=== PATIENT | male | born 1980 | race American Indian/Alaskan Native ===

== ENCOUNTER 2021-11-18 14:43 | Emergency (ER) | payer MEDICARE, MEDICAID ==
[2021-11-18 15:14] VITALS: BP 109/80
[2021-11-18] MEDS ORDERED: KETOROLAC 10 MG TAB PO ONE (17:59)
[2021-11-18] MEDS ORDERED: dexAMETHasone 4 MG/ML VIAL IM ONE (17:59)
[2021-11-18] MEDS ORDERED: METOCLOPRAMIDE 10 MG TAB PO ONE (17:59)
[2021-11-18] MEDS ORDERED: diphenhydrAMINE 25 MG CAP PO ONE (18:00)
--- NOTE | 2021-11-18 19:58 | Emergency Department Report ---
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 He denies n/v, dizziness, vision changes, and photophobia. He states that GONSALVES is mostly frontal and 9/10. Timing/Duration: 24 hours Quality: severe, achy Head Injury Location: frontal Recent Head Trauma: frequent headaches Associated Symptoms: denies: confusion, fatigue, facial pain, fever/chills, flushing, loss of consciousness, nausea/vomiting, nasal congestion, nasal drainage, numbness in legs/feet, rash, seizures, sinus infection, stiff neck, vi ashley changes, weakness Allergies/Adverse Reactions: Allergies No Known Allergies Allergy (Verified 11/18/21 15:11) Home Medications: Ambulatory Orders Butalb/Acetaminophen/Caffeine [Fioricet 50-300-40 mg CAP] 1 cap PO Q8HR PRN #12 cap 11/18/21 ED Review of Systems Comment: All other systems reviewed and negative Constitutional: denies: chills, diaphoresis, fever, malaise, weakness ENT: denies: ear pain, congestion Respiratory: denies: cough, orthopnea, shortness of breath, SOB with exertion, SOB at rest, stridor, wheezing Cardiovascular: denies: chest pain, palpitations, dyspnea on exertion, orthopnea, edema, syncope, paroxysmal nocturnal dyspnea Gastrointestinal: denies: abdominal pain, nausea, vomiting, diarrhea, hematemesis, melena, hematochezia Genitourinary: denies: urgency, dysuria, frequency, hematuria, discharge Musculoskeletal: denies: back pain Skin: denies: rash, lesions Neurological: headache. denies: weakness, numbness, paresthesias, confusion, abnormal gait, vertigo Psychiatric: denies: anxiety Hematological/Lymphatic: denies: easy bleeding, easy bruising ED Past Medical Hx - Past Medical History Previous Medical History?: No - Surgical History Past Surgical History?: No - Medications Home Medications: Home Medications Medication Instructions Recorded Confirmed Last Taken Type Butalb/Acetaminophen/Caffeine 1 cap PO Q8HR PRN #12 cap 11/18/21 Unknown Rx [Fioricet 50-300-40 mg CAP] ED Physical Exam - General Limitations: No Limitations General appearance: alert, in no apparent distress - Head Head exam: Present: atraumatic, normocephalic - Eye Eye exam: Present: normal appearance. Absent: conjunctival injection - Neck Neck exam: Present: normal inspection, full ROM. Absent: tenderness, meningismus, lymphadenopathy - Respiratory Respiratory exam: Present: normal lung sounds bilaterally. Absent: respiratory distress, wheezes, rales, rhonchi, stridor, chest wall tenderness - Cardiovascular Cardiovascular Exam: Present: regular rate, normal heart sounds - GI/Abdominal GI/Abdominal exam: Present: soft, normal bowel sounds. Absent: distended, tenderness, guarding, rebound, rigid - Extremities Exam Extremities exam: Present: normal inspection, full ROM, normal capillary refill. Absent: tenderness, pedal edema, joint swelling, calf tenderness - Back Exam Back exam: Present: normal inspection. Absent: CVA tenderness (R), CVA tenderness (L), vertebral tenderness - Neurological Exam Neurological exam: Present: alert, oriented X3, normal gait - Psychiatric Psychiatric exam: Present: normal affect, normal mood - Skin Skin exam: Present: warm, dry, intact, normal color ED Course - Reevaluation(s) Reevaluation #1: 11/18/21 19:55 Headache resolved and patient states that he feels much better. 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 He denies n/v, dizziness, vision changes, and photophobia. He states that GONSALVES is mostly frontal and 9/10. Headache resolved. Patient will be discharged home with Fiorcet to use as needed for GONSALVES. He is advised to follow up with his pcp for worsening symptoms. He verbalized understanding of and agreement with plan of care. ED Disposition Clinical Impression: Headache Qualifiers: Headache type: unspecified Headache chronicity pattern: acute headache Intractability: not intractable Qualified Code(s): R51.9 - Headache, unspecified Disposition: 01 HOME / SELF CARE / HOMELESS Is pt being admited?: No Does the pt Need Aspirin: No Condition: Stable Instructions: General Headache Without Cause, [id number] Additional Instructions: Take medications as prescribed. Follow-up with primary care provider if worsening symptoms. Return to the emergency department as needed. 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 I was available for consultation as needed at all times during the patient's visit in the emergency department but was not consulted on this case. Critical care attestation.: If time is entered above; I have spent that time in minutes in the direct care of this critically ill patient, excluding procedure time.
== END 2021-11-18 20:45 | disposition home or self-care (01) ==
LOC: ED 14:43
DX: R51.9 Headache, unspecified (principal)
CPT/HCPCS: 96372; 99282; J1100